=== PATIENT | female | born 1965 | race Caucasian/White ===

== ENCOUNTER 2021-05-09 23:42 | Emergency (ER) | payer OTHER ==
[~2021-05-09] VITALS: Ht 152.4 cm; Wt 81.5 kg
[~2021-05-09 23:42] MED LIST: ALPR0.25 PO
[2021-05-09 23:55] VITALS: BP 159/83
[2021-05-10 00:44] LABS: CLARITY URINE CLOUDY (CLEAR); COLOR URINE YELLOW (YELLOW); KETONES URINE NEGATIVE (NEGATIVE); LEUKOCYTE ESTERASE URINE 3+ (NEGATIVE); NITRITE URINE NEGATIVE (NEGATIVE); OCCULT BLOOD URINE 3+ (NEGATIVE); PROTEIN URINE NEGATIVE (NEGATIVE); SPECIFIC GRAVITY URINE 1.008 (1.005-1.030); UROBILINOGEN URINE 0.2 E.U./dL (0.2-1.0)
[2021-05-10] MEDS ORDERED: CEPH500C2 MT (01:04)
[2021-05-10] MEDS ORDERED: TOPUD MT (01:04)
[2021-05-10] MEDS ORDERED: PHEN-815 MT (01:04)
[2021-05-10] MEDS ORDERED: CEPHALEXIN 250MG CAPSULE PO ONE (01:15)
[2021-05-10] MEDS ORDERED: PHENAZOPYRIDINE HCL 100MG TABLET PO ONE (01:15)
[2021-05-10] MEDS ORDERED: ACETAMINOPHEN 325MG TABLET PO ONE (01:15)
== END 2021-05-10 01:35 | disposition home or self-care (01) ==
LOC: ER 23:42
DX: N30.00 Acute cystitis without hematuria (principal); Z87.440 Personal history of urinary (tract) infections
CPT/HCPCS: 81003; 81025; 87077; 87186; 99284